=== PATIENT | female | born 1975 | race Caucasian/White ===

== ENCOUNTER 2020-05-02 11:41 | Emergency (ER) | payer OTHER, SELFPAY ==
[2020-05-02 11:42] VITALS: BP 102/86; PULSE 76; PULSE 88; RESP 17; TEMP 37; O2SAT 98; O2SAT 99; BMI 30.7
--- NOTE | 2020-05-02 12:02 | ED.DCSUM_ITS ---
History of Present Illness Chief Complaint: Fall Narrative: This patient is a 44-year-old female who presents after a fall. She slipped on ice. She fell into a seated position and states she caught herself with her right arm. She complains of severe right elbow pain as well as burning pain in her right shoulder. No head injury no loss of consciousness. No anticoagulation. No headache. No vomiting. No chest pain shortness of breath abdominal or back pain. No injury to the other extremities. She has otherwise recently been well with no recent illness. Past Medical History - Allergies and Home Meds Allergies/Adverse Reactions: Allergies No Known Allergies Allergy (Verified 05/02/20 11:42) Primary Care Physician: Tho Lynne MD [Primary Care Provider] - Past Medical History: - - ADHD, migraines Smoking Status: Current every day smoker Review of Systems All systems negative except as indicated General: Denies: Fever Cardiovascular: Denies: Chest pain Respiratory: Denies: Dyspnea Gastrointestinal: Denies: Abdominal pain, Vomiting, Diarrhea Musculoskeletal: Reports: Extremity Pain Skin: Denies: Rash Neurological: Denies: Headache Hematologic: Denies: Easy bruising Allergy: Denies: Uticaria Physical Exam Vital Signs/Narrative: Vital Signs Temp Pulse Resp BP Pulse Ox 05/02/20 11:42 98.6 F 76 17 102/86 H 99 Inital Vital Signs reviewed: Yes General: Well nourished Head: Normocephalic Eyes: EOMI ENT: Moist mucous membranes Neck: Supple Cardiovascular: Regular rate, Regular rhythm Respiratory: No distress, CTA bilaterally Abdomen: Soft, Nontender Extremities: - - Limited and painful range of motion of the right elbow no bony deformity no open wounds she also has tenderness to the right shoulder no tenderness along the clavicle wrist or hand she has a palpable radial pulse normal sensation, active full range of motion without pain of the left upper extremity Skin: Normal color Neurological: Alert, Oriented x3, - - GCS of 15 Psychological: Normal affect Diagnostic/Tx/Re-eval Impressions Elbow X-Ray 05/02/20 12:02 IMPRESSION: Nondisplaced radial neck fracture. Electronically Signed: Kulwant Atkins, at 12:50 EST , Service support , Shoulder X-Ray 05/02/20 12:02 IMPRESSION: Normal x-ray examination of the shoulder. Electronically Signed: Kulwant Atkins, at 12:50 EST , Service support , 05/02/20 12:02 Elbow min 3 Views [RAD] Stat Shoulder min 2 Views [RAD] Stat - Medical Decision Making X-ray of the shoulder was normal. X-ray of the elbow was read as nondisplaced radial neck fracture. I am unable to appreciate this on my review. Patient was placed in a sling. Patient was referred to orthopedics. She was given a p rescription for [place]. She understands to return for new or worsening symptoms and was advised on signs and symptoms to monitor for. The patient was discharged. ED Disposition - Plan for ED Patient: Disposition: Home or Assisted Living Diagnosis: Radial neck fracture Instructions: ED Elbow Fracture Prescriptions: Hydrocodone Bitart/Apap 5-325 [[place] 5MG-325MG] 1 tab PO Q6H PRN PRN 3 Days #10 tab PRN Reason: Pain Prescription Printed Referrals: Tho Lynne MD [Primary Care Provider] - Stan Abebe MD [STAFF PHYSICIAN] -
--- NOTE | 2020-05-02 12:02 | RAD_ITS ---
STUDY: X-RAY - RIGHT ELBOW REASON FOR EXAM: Female, 44 years old. FALL. SEVERE ELBOW PAIN. UNABLE TO BEND TECHNIQUE: 3 view(s) of the elbow. COMPARISON: None. FINDINGS: Nondisplaced radial neck fracture. Normal radiocapitellar and ulnotrochlear articulations. The soft tissue structures are unremarkable. RAD/Elbow min 3 Views IMPRESSION: Nondisplaced radial neck fracture. Electronically Signed: Kulwant Atkins, at 12:50 EST , Service support ,
--- NOTE | 2020-05-02 12:02 | RAD_ITS ---
STUDY: X-RAY - RIGHT SHOULDER REASON FOR EXAM: Female, 44 years old. FALL. ELBOW PAIN AND INTO SHOULDER TECHNIQUE: 2 view(s) of the shoulder. COMPARISON: None. FINDINGS: Normal glenohumeral articulation. Normal acromioclavicular joint. Normal acromion. Normal humeral head and visualized proximal humerus. The soft tissue structures are unremarkable. Normal visualized pulmonary apex. RAD/Shoulder min 2 Views IMPRESSION: Normal x-ray examination of the shoulder. Electronically Signed: Kulwant Atkins, at 12:50 EST , Service support ,
[2020-05-02] MEDS: HYDROcodone Bitartrate/Apap 5/325 Tablet PO (12:08)
[2020-05-02 13:30] VITALS: BP 139/8; PULSE 92; RESP 15; O2SAT 99
== END 2020-05-02 13:32 | disposition home or self-care (01) ==
PROVIDERS: Emergency Provider Emergency Medicine; PCP Family Medicine
DX: S52.131A Displaced fracture of neck of right radius, initial encounter for closed fracture (principal); F17.200 Nicotine dependence, unspecified, uncomplicated; F90.9 Attention-deficit hyperactivity disorder, unspecified type; W00.0XXA Fall on same level due to ice and snow, initial encounter
CPT/HCPCS: 73030; 73080; 99285